=== PATIENT | male | born 1975 | race Caucasian/White ===

== ENCOUNTER 2023-02-09 06:16 | Day surgery (SDC) | payer BC, SELFPAY ==
[2023-02-09 06:28] VITALS: BP 111/79; PULSE 52; RESP 16; TEMP 36.1; O2SAT 99
[2023-02-09] MEDS: Lactated Ringers 1,000 ML 80 ML IV (07:01)
--- NOTE | 2023-02-09 07:03 | W.ANESPRE ---
General Info Date of Service Date Performed: 02/09/23 Height: 5 ft 10.5 in Weight: 93.1 kg Body Mass Index (BMI): 29.0 Surgical Procedure: Operation Date: 02/09/23 07:35 Proposed Procedure Side Surgeon p Colonoscopy Albaro Harrison MD Meds Allergies and Home Medications Allergies Allergy/AdvReac Type Severity Reaction Status Date / Time No Known Allergies Allergy Verified 02/08/23 11:46 Home Medication Medication Instructions Recorded B-complex with vitamin C 1 cap PO DAILY 12/31/22 cholecalciferol (vitamin D3) 25 25 mcg PO DAILY 12/31/22 mcg (1,000 unit) capsule bisacodyl 5 mg tablet,delayed 5 mg PO ONCE colonscopy bowel prep 02/07/23 release (Dulcolax (bisacodyl)) #4 tabs polyethylene glycol 3350 17 238 g PO ONCE colonoscopy prep 02/07/23 gram/dose oral powder #238 grams prochlorperazine maleate 5 mg 5 mg PO Q8H PRN nausea and 02/07/23 tablet (Compazine) vomiting #7 tabs Current Visit Medications: Current Medications Generic Name Dose Route Start Last Admin Trade Name Freq PRN Reason Stop Dose Admin Ringer's Solution 1,000 mls @ 80 mls/hr 02/09/23 06:00 02/09/23 07:01 IV 02/09/23 23:59 80 mls/hr INFUSION ELIZABETH Administration IV Miscellaneous Supplies 1 each 02/09/23 06:00 Iv Access IV 02/09/23 23:59 DIRECTED ELIZABETH Sodium Chloride 0 ml 02/09/23 06:00 Normal Saline Flush 10 Ml Syr IV 02/09/23 23:59 PRN PRN Sodium Chloride 0 ml 02/09/23 06:00 Normal Saline 10 Ml Vial IJ 02/09/23 23:59 DIRECTED PRN Sterile Water 0 ml 02/09/23 06:00 Water,Injection,Sterile 10 Ml Vial IJ 02/09/23 23:59 DIRECTED PRN PFSH Active Problems Active Problems: Problem Status Onset Code Cervical somatic dysfunction M99.01 Cranial somatic dysfunction M99.00 Somatic dysfunction of lower extremities M99.06 Positive colorectal cancer screening using Cologuard test R19.5 Medical History Medical History Ankle stiffness Pes planus of both feet Tinnitus of both ears Medical History Comments:: marijauna use Surgical History Surgical History History of hernia repair History of surgery on wrist no hardware Hx of appendectomy Hx of wisdom tooth extraction Tobacco Smoking/Tobacco Use Status: Never Passive smoking exposure: Yes Second hand exposure: Yes Alcohol Alcohol Intake: current Alcohol intake frequency: a few times a week Alcohol type: beer, wine and hard liquor Substance Use Substance use: Socially Substance use type: marijuana Vital Signs and Lab Results Vital Signs Most Recent Vital Signs in EMR: Most Recent Vital Signs Temp Pulse Resp BP Pulse Ox 36.1 C L 52 L 16 111/79 99 02/09/23 06:28 02/09/23 06:28 02/09/23 06:28 02/09/23 06:28 02/09/23 06:28 Lab Results Blood Type / Crossmatch: No Data to Display Complete Blood Count: No Data to Display Complete Metabolic Panel: No Data to Display Liver Function Panel: No Data to Display Coagulation Panel: No Data to Display Cardiac Panel: No Data to Display Arterial Blood Gas: No Data to Display Venous Blood Gas: No Data to Display Pancreas Panel: No Data to Display Thyroid Panel: No Data to Display Infectious Disease: No Data to Display Blood Cultures: No Data to Display Toxicology Panel: No Data to Display Anesthesia Assessment and Plan Anesthesia History Personal History: No History of Anesthesia Complications Family History: No Family History of Anesthesia Complications Exercise Tolerance Exercise Tolerance: Metabolic Equivalents>4 Pertinent Negatives Pertinent Negatives: No Symptoms of GERD, No Major Cardiovascular Symptoms or Complaints, No Major Pulmonary Symptoms or Complaints and No History of CVA/TIA Cardiac & Pulmonary Exam Cardiac Exam: Normal S1/S2 Heart Sounds Pulmonary Exam: Clear Bilateral Breath Sounds Implantable Cardiac Device Does patient have a Pacemaker or an ICD?: No Airway Exam Known Difficult Airway: No Mallampati Class: 3 Mouth Opening: Normal (> 3cm) Thyromental Distance: Greater than 3 cm Neck Range of Motion: Full ROM Neck Circumference: Normal Teeth Condition: Normal Dentition ASA Classification ASA Score: ASA 2 Emergency Case?: No NPO Status NPO Status: NPO Clears >2 hours, Solids >8 hours Anesthesia Plan Resuscitation Status: Full Code Anesthesia Technique: General Anesthesia Airway Planned: Natural Airway Monitors Used: Standard Monitors
[2023-02-09 07:09] VITALS: BMI 29.0
--- NOTE | 2023-02-09 08:02 | BOWEL_PTH ---
PATIENT: Bala Gann LOC: [facility] U#:[id number] AGE/SX: 47/M ROOM: RE02/09/[address]: Albaro Harrison : 1975 BED: DIS: 02/09/2023 SPEC #: [id number] RECD: 02/09/23 12:52 STATUS: SINA RE #: [id number] [place]: 02/09/23 08:[address]: Albaro Harrison DEPT: Surgical Specimen RECD BY: Holly Pacheco ENTERED: 02/09/23 12:53 SP TYPE: Bowel OTHR DR: Jordin Beasley DNP Tissues: 1 - BIOPSY BOWEL Procedures: GROSS AND MICRO LEVEL 4 Comments: [id number]
[2023-02-09 08:12] VITALS: BP 103/71; PULSE 66; RESP 16; TEMP 36.4; O2SAT 98
--- NOTE | 2023-02-09 08:18 | COLE_ITS ---
Date of service: 02/09/23 Time of Service: 08:18 Colonoscopy Report Procedure Description: Procedures performed: 1. Colonoscopy with cold forceps polypectomy Preoperative diagnosis: Positive Cologuard Postoperative diagnosis: Normal Colon, rectal polyp, grade 1 internal hemorrhoids Surgeon: Conner Harrison Anesthesia: Hortencia Indication for procedure: 47-year-old man without any symptoms who had a Cologuard test that was positive. He has a family history of polyps in his f ather. Findings: Normal terminal ileum.? Normal Colon.? Hyperplastic?appearing rectal polyp was removed with cold forceps technique. No diverticuli. Grade 1 internal hemorrhoids are present. Surveillance/follow-up recommendations: 3-10 years pending path results of the polyp. If sessile serrated or villous (not suspected) then 3 years. If hyperplastic or simple adenoma then 7 to 10 years. Complications: None Blood loss: Minimal Prep: Excellent Specimens:? None Procedure in detail: Written consent was obtained from the patient who was in agreement with the risks, benefits and indications of the procedure.? We went to the endoscopy suite and laid the patient in left lateral decubitus position.? Anesthesia was administered which was tolerated well.? A timeout was performed and when we are all in agreement we began the procedure. Digital rectal exam and visual examination was performed and within normal limits.? A well?lubricated colonoscope was advanced without difficulty all the way to the cecum identified by the ileocecal valve, and triangular folds and appendiceal orifice.? Terminal ileum was normal.? It was then slowly withdrawn.?? Retroflexion was performed in the rectum.? The findings/interventions are noted above. The scope was then removed and the patient tolerated the procedure well and was then taken back to the PACU in hemodynamically stable condition.
--- NOTE | 2023-02-09 08:20 | W.PM.DSUDISC ---
Date of service: 02/09/23 Time of Service: 08:20 Discharge Plan Disposition Patient Disposition: Home Condition: Good Discharge Details Attending Provider: Albaro Harrison Primary Care Provider: Jordin Razo Home Meds and New Rx's Prescriptions: No Action B-complex with vitamin C Capsule 1 cap PO DAILY cholecalciferol (vitamin D3) 25 mcg (1,000 unit) capsule 25 mcg PO DAILY prochlorperazine maleate [Compazine] 5 mg tablet 5 mg PO Q8H PRN (Reason: nausea and vomiting) Qty: 7 0RF polyethylene glycol 3350 17 gram/dose powder 238 g PO ONCE Qty: 238 0RF Rx Instructions: take per colonoscopy instructions bisacodyl [Dulcolax (bisacodyl)] 5 mg tablet,delayed release (DR/EC) 5 mg PO ONCE Qty: 4 0RF Rx Instructions: take per colonoscopy instructions Discharge Instructions Additional Instructions: FINDINGS: A small polyp was found and removed from the rectum. This may or may not be the reason the Cologuard test was positive. You probably need to do another colonoscopy in 7 to 10 years. Stand Alone Forms: Colonoscopy Post Instructions Activity:: Activity as Tolerated Diet:: As Tolerated Discharge Orders Discharge Orders: Discharge Order (Routine); Ordered 02/09/23 Ordered By: Albaro Harrison
[2023-02-09 08:37] VITALS: BP 99/65; PULSE 63; RESP 16; TEMP 36.3; O2SAT 98
--- NOTE | 2023-02-09 08:50 | W.ANESPOSTOP ---
Postoperative Evaluation Date, Time and Location Date Performed: 02/09/23 Time Performed: 08:20 Patient Location: Day Surgery Unit Vital Signs Most Recent Imported Vital Signs: Most Recent Vital Signs Temp Pulse Resp BP Pulse Ox 36.3 C L 63 16 99/65 L 98 02/09/23 08:37 02/09/23 08:37 02/09/23 08:37 02/09/23 08:37 02/09/23 08:37 Pain Score Most Recent Pain Score: Most Recent Pain Score Pain Level 0 02/09/23 08:37 Assessment Mental Status: Awake (Alert & Oriented to Patient Baseline) Airway and Respiratory Function: Patent airway with normal (patient baseline) respiratory exam Cardiovascular Function: Hemodynamically Stable Hydration Status: Adequately Hydrated Nausea & Vomiting: No Nausea or Vomiting Pain: Pt. Denies Any Pain Peripheral Nerve Block: Patient did not receive a nerve block
== END 2023-02-09 09:13 | disposition home or self-care (01) ==
PROVIDERS: PCP Nurse Practitioner Family; Visit Provider Student in an Organized Health Care Education/Training Program
PROC: 0DJD8ZZ Inspection of Lower Intestinal Tract, Via Natural or Artificial Opening Endoscopic (ICD-10-PCS; CPT 45378; principal; 2023-02-09 07:30)
DX: Z12.11 Encounter for screening for malignant neoplasm of colon (principal); R19.5 Other fecal abnormalities; Z83.71 Family history of colonic polyps; K64.0 First degree hemorrhoids; K62.1 Rectal polyp; K62.89 Other specified diseases of anus and rectum
CPT/HCPCS: 45380; 88305; J2250

== ENCOUNTER 2023-03-22 01:42 | Outpatient (CLI) | payer BC, SELFPAY ==
[2023-03-22 07:49] LABS: Abs Immature Grans 0.01 10^3/uL (0.0-0.06); Absolute Basophil Count 0.02 10^3/uL (0.0-0.2); Absolute Eosinophil Count 0.14 10^3/uL (0.0-0.7); Absolute Lymphocyte Count 1.21 10^3/uL (1.2-3.4); Absolute Monocyte Count 0.39 10^3/uL (0.1-0.8); Absolute Neutrophil Count 2.37 10^3/uL (1.2-6.7); Basophils % 0.5; Eosinophils % 3.4; HGB 15.2 g/dL (13.5-17.5); Immature Grans % 0.2; Lymphocytes % 29.2; MCH 31.3 pg (27.0-33.0); MCHC 34.5 % (32.0-36.0); MCV 91 fL (80-95); MPV 9.2 fL (8.0-11.0); Monocytes % 9.4; Neutrophils % 57.3; Platelet Count 243 10^3/uL (130-400); RBC 4.86 10^6/uL (4.36-5.78); RDW 11.8 % (11.8-14.1); RDW-SD 38.9 fL; WBC 4.14 10^3/uL (4.4-10.8)
[2023-03-22 08:57] LABS: ALT 31 U/L (16-63); AST 18 U/L (15-37); Alkaline Phosphatase 51 U/L (46-116); Anion Gap 7.5 mmol/L (3-11); BUN 17 mg/dL (7-18); Bilirubin, Total 0.5 mg/dL (0.2-1.0); CO2 28.5 mmol/L (21.0-32.0); Calcium 9.2 mg/dL (8.5-10.1); Calculated LDL 129 mg/dL (<100); Chloride 100 mmol/L (98-107); Cholesterol 204 mg/dL (<200); Estimated GFR 94.59 (mL/min/1.73m2); Glucose 99 mg/dL (74-106); HDL Cholesterol 64 mg/dL (40-60); Potassium 4.3 mmol/L (3.5-5.1); Sodium 136 mmol/L (136-145); Total Protein 7.4 g/dL (6.4-8.2); Triglyceride 57 mg/dL (<150)
[2023-03-23 10:27] LABS: HIV-1/2 Ag & Ab Screen Negative (Negative)
[2023-03-23 10:51] LABS: Hepatitis C Ab w Rflx HCV PCR Negative (Negative)
== END 2023-03-22 01:43 | disposition home or self-care (01) ==
LOC: LBO 01:44
PROVIDERS: Surgery; PCP Nurse Practitioner Family; Visit Provider Nurse Practitioner Family
DX: Z13.9 Encounter for screening, unspecified (principal); R19.5 Other fecal abnormalities
CPT/HCPCS: 36415; 80053; 80061; 86803; 87389; 85025